=== PATIENT | female | born 1960 | race African-American/Black ===

== ENCOUNTER 2022-12-19 14:28 | Emergency (ER) | payer MEDICARE, SELFPAY ==
[2022-12-19 14:36] VITALS: BP 180/81; PULSE 101; RESP 16; TEMP 36.8; O2SAT 97; BMI 23.6
--- NOTE | 2022-12-19 14:45 | W.ED.NAVMDI ---
HPI - Nausea/Vomiting/Diarrhea General: Chief complaint: Nausea/Vomiting/Diarrhea Stated complaint: states dehydration Time Seen by Provider: 12/19/22 14:45 History of Present Illness: Ms. Street is a 62-year-old lady with history of hypertension, diabetes, history of what sounds like aortic dissection type a requiring surgical repair and medical management of extension into the abdomen presenting to the emergency department for generalized illness. She reports a few week history of nausea, vomiting, generalized malaise and intermittent abdominal pain. She notes approximately 10 episodes of nonbloody and nonbilious emesis. She symptoms are exacerbated by exertion and eating. No other specific changes in health, exacerbating, or alleviating factors identified. Flu and COVID testing negative at clinic. Onset (ago): week(s) Description of vomiting: watery Associated nausea: Yes Associated abdominal pain: Yes Location of pain: RLQ and LLQ Pain consistency: intermittent Severity: moderate Quality: aching Exacerbating factors: none Relieving factors: none Associated symtoms: Reports cough, fatigue, malaise and nausea Review of Systems General: Reports: 10 or more systems reviewed and unremarkable except in HPI and below Const: Reports: fatigue and malaise GI: Reports: nausea PFSH ED PFSH: Medical History (Updated 12/27/22 @ 00:01 by MIRZA Mosquera) Anxiety Depression History of aortic dissection Hypertension Type 2 diabetes mellitus Surgical History (Updated 12/19/22 @ 15:00 by Rinku Lee MD) H/O heart surgery History of hysterectomy History of total knee arthroplasty Physical Exam Const: COMMON NORMALS: alert GENERAL APPEARANCE: cooperative and well developed HENMT: COMMON NORMALS: normocephalic and atraumatic HEAD & SCALP: normocephalic and atraumatic Eye: COMMON NORMALS: conjunctivae normal CONJUNCTIVA: Yes conjunctivae normal SCLERA: sclerae normal Neck/C-Spine: COMMON NORMALS: supple GENERAL: Yes trachea midline Resp: COMMON NORMALS: clear to auscultation bilaterally EFFORT & INSPECTION: Yes able to speak in complete sentences AUSCULTATION: clear to auscultation bilaterally Cardio: COMMON NORMALS: regular rhythm RATE: tachycardic RHYTHM: regular rhythm GI: COMMON NORMALS: Soft to palpation PALPATION: Yes Soft to palpation and No Tenderness to palpation present (GI) Extremity: GENERAL: Yes normal exam except as noted and No edema Neuro: COMMON NORMALS: moves all extremities SENSORIUM/ORIENTATION: Yes alert and No Orientation impaired Psych: COMMON NORMALS: mental status grossly normal and Normal thought process present THOUGHT PROCESS: Normal thought process present Course Vital Signs: Vital signs: Vital Signs Temperature 98.2 F 12/19/22 14:36 Pulse Rate 94 12/19/22 18:06 Respiratory Rate 16 12/19/22 18:06 Blood Pressure 170/78 12/19/22 18:06 Pulse Oximetry 94 12/19/22 18:06 Oxygen Delivery Me thod 12/19/22 14:36 MDM - Nausea/Vomiting/Diarrhea Medical Decision Making 62-year-old lady presenting with concern over nausea, vomiting, dehydration. Exam as above. Patient mildly tachycardic and clinically appears dry. She is nontoxic. EKG notable for sinus rhythm with LVH and nonspecific ST segment abnormalities. No STEMI. Hematologic panel with no leukocytosis, normal hemoglobin and platelet count. Metabolic panel with hypokalemia and evidence of dehydration. Negative range 2-hour delta troponin. Rapid viral testing negative reviewed. Chest x-ray with cardiomegaly, no lobar consolidation or pneumothorax. Given benign abdominal exam I do not believe that the patient requires abdominal imaging. Patient treated with IV fluids, analgesia, potassium replenishment, antiemetic. She is able to tolerate p.o. intake. Patient left prior to receiving discharge instructions. Most likely etiology of symptoms is dehydration secondary to viral syndrome. The patient was oriented to person, place, and time, has the capacity to make decisions regarding the medical care offered. The patient speaks coherently and exhibits no evidence of having an altered level of consciousness or alcohol or drug intoxication to a point that would impair judgment. Medical Records I reviewed the patient's medical records. Lab Data I reviewed the patient's lab results. 12/19/22 15:22 12/19/22 15:22 Radiology Impressions Chest X-Ray 12/19/22 14:54 IMPRESSION: Cardiomegaly. Otherwise, no acute findings. Laboratory Results WBC 7.9 10^3/uL (4.0-10.0) 12/19/22 15:22 RBC 5.09 10^6/uL (4.1-5.3) 12/19/22 15:22 Hgb 13.1 g/dL (11.5-15.3) 12/19/22 15: Hct 38.6 % (37.0-47.0) 12/19/22 15: MCV 75.8 fl (81-99) L 12/19/22 15: MCH 25.7 pg (28.0-34.0) L 12/19/22 15: MCHC 33.9 g/dL (30.0-36.0) 12/19/22 15: RDW 15.7 % (12.1-15.1) H 12/19/22 15: Plt Count 317 10^3/cmm (130-400) 12/19/22 15: MPV 11.7 fL (7.4-10.4) H 12/19/22 15: Neut % (Auto) 62.9 % 12/19/22 15: Lymph % (Auto) 30.0 % 12/19/22: [place] % (Auto) 6.7 % 12/19/22: Eos % (Auto) 0.0 % 12/19/22 15: Baso % (Auto) 0.3 % 12/19/22: Neut # (Auto) 5.00 10^3/uL (1.8-7.7) 12/19/22 15: Lymph # (Auto) 2.4 10^3/uL (0.8-4.8) 12/19/22: [place] # (Auto) 0.5 10^3/uL (0.2-0.9) 12/19/22: Eos # (Auto) 0.0 10^3/uL (0.0-0.8) 12/19/22 15: Baso # (Auto) 0.0 10^3/uL (0.0-0.1) 12/19/22: Nucleated RBC % (auto) 0 % 12/19/22: Nucleated RBCs # 0.0 /100WBC 12/19/22 15: Sodium 138 mmol/L (136-145) 12/19/22 15: Potassium 2.9 mmol/L (3.5-5.1) L 12/19/22 15: Chloride 97 mmol/L (98-107) L 12/19/22 15:22 Carbon Dioxide 26 mmol/L (22-29) 12/19/22 15:22 Anion Gap 17.9 (5-19) 12/19/22 15:22 BUN 32 mg/dL (8-23) H 12/19/22 15:22 Creatinine 1.0 mg/dL (0.5-0.9) H 12/19/22 15:22 GFR Calculation 68.4 mL/min (90-130) L 12/19/22 15:22 Glucose 116 mg/dL (65-115) H 12/19/22 15:22 Calculated Osmolality 294 mOsm/kg (285-295) 12/19/22 15:22 Calcium 9.6 mg/dL (8.5-10.5) 12/19/22 15:22 Total Bilirubin 0.8 mg/dL (0.15-1.2) 12/19/22 15:22 AST 18 U/L (0-32) 12/19/22 15:22 ALT 12 U/L (0-33) 12/19/22 15:22 Alkaline Phosphatase 92 U/L (35-105) 12/19/22 15:22 Troponin T Baseline 29 ng/L (0-10) H 12/19/22 15:22 Troponin T 120 Minute 25.40 ng/L (0-10) H 12/19/22 17:19 Delta Troponin T -3.60 ABS# (0-10) L 12/19/22 17:19 C-Reactive Protein 4.7 mg/L (0.0-4.9) 12/19/22 15:22 Total Protein 8.1 g/dL (6.6-8.7) 12/19/22 15:22 Albumin 4.4 g/dL (3.5-5.2) 12/19/22 15:22 Globulin 3.7 g/dL (1.3-4.6) 12/19/22 15:22 Procalcitonin 0.12 ng/mL (0-0.5) 12/19/22 15:22 TSH 1.00 uIU/mL (0.27-4.20) 12/19/22 15:22 Discharge Plan Discharge Patient Disposition: Left Against Medical Advice Clinical Impression: Nausea & vomiting, Headache, Shortness of breath, Acute viral syndrome Condition: Stable Prescriptions: New ondansetron 4 mg tablet,disintegrating 4 mg PO Q8H PRN (Reason: nausea and vomiting) Qty: 15 0RF albuterol sulfate 90 mcg/actuation HFA aerosol inhaler 2 inh inhalation Q4H PRN (Reason: shortness of breath or wheezing) Qty: 8.5 0RF No Action diazepam 5 mg tablet 5 mg PO DAILY PRN buspirone 10 mg tablet 10 mg PO DAILY metformin 500 mg tablet 500 mg PO BID nifedipine 60 mg tablet extended release 60 mg PO DAILY atorvastatin 40 mg tablet 40 mg PO DAILY Eliquis 5 mg tablet 5 mg PO BID montelukast [Singulair] 10 mg tablet 10 mg PO DAILY hydralazine 25 mg tablet 25 mg PO TID olmesartan 40 mg tablet 40 mg PO DAILY sertraline 100 mg tablet 150 mg PO DAILY Discharge Orders: Discharge ED (Routine); Ordered 12/19/22 Ordered By: Rinku Lee Discharge Diet: Usual diet Discharge Activity: Increase activity as tolerated Patient Instructions: Dehydration (ED), Acute Nausea and Vomiting (ED), Viral Syndrome (ED), Shortness of Breath (ED) Activity Restrictions/Additional Instructions: Thank you for visiting the emergency department. You were seen and evaluated for generalized illness. The exact cause your symptoms is unclear however is likely related to viral syndrome with mild dehydration. I will prescribe steroids and antinausea medications as well as an inhaler. Please also use your albuterol metered-dose inhaler 2 puffs every 4 hours for 24 hours followed by 2 puffs every 6 hours for 24 hours followed by 2 puffs every 8 hours for 24 hours and then return to the normal schedule. We are still waiting for the repeat cardiac marker for to come back to evaluate for heart attack. I will call you had the listed phone number in the chart to return if that number comes back elevated. Please follow-up with your primary care provider. Return to the emergency department for anything that you are concerned about and feel needs emergency department evaluation. Stand Alone Forms: Against Medical Advice Coding Level of Care Code ED Bridge Construction Inspector for Dominguez Aguilar
--- NOTE | 2022-12-19 14:54 | XRR_ITS ---
PROCEDURE INFORMATION: Exam: XR Chest Exam date and time: 12/19/2022 2:59 PM Age: 62 years old Clinical indication: Shortness of breath; Prior surgery; Surgery type: Stents; Additional info: SOB TECHNIQUE: Imaging protocol: Radiologic exam of the chest. Views: 1 view. COMPARISON: No relevant prior studies available. FINDINGS: Lungs: Unremarkable. No consolidation. Pleural spaces: Unremarkable. No pleural effusion. No pneumothorax. Heart/Mediastinum: Cardiomegaly. Bones/joints: Sternotomy wires noted. Visualized osseous structures are intact. XR/XR chest 1V portable [id number] IMPRESSION: Cardiomegaly. Otherwise, no acute findings.
[2022-12-19] MEDS: ondansetron 2 mg/ML SDV 2 mL 4 MG IVP (15:17)
[2022-12-19] MEDS: sodium chloride 0.9% 1,000 ML 999 ML IV (15:17)
--- NOTE | 2022-12-19 15:23 | ECG_ITS ---
[facility] Test Date: 2022-12-19 Pat Name: Katharina Street Department: Room: Gender: Female Ammonia Refrigeration Technician: : 1960 Requested By: Rinku Lee Order Number: [id number] Zeferino MD: Manoj Davila M.D. Measurements Intervals [place] Rate: 86 P: -40 SC: 137 QRS: -16 QRSD: 110 T: 148 QT: 399 QTc: 480 Interpretive Statements SINUS RHYTHM LEFT VENTRICULAR HYPERTROPHY AND ST-T CHANGE [VOLTAGE CRITERIA PLUS ST/T ABNORMALITY] No previous ECG available for comparison Electronically Signed On 12-19-2022 21:23:32 YEAST CAKE CUTTER by Manoj Davila M.D. [id number]
[2022-12-19 15:29] LABS: Basophils % 0.3 %; Hematocrit 38.6 % (37.0-47.0); Hemoglobin 13.1 g/dL (11.5-15.3); Lymphocytes # 2.4 10^3/uL (0.8-4.8); Mean Corpuscular HGB Conc 33.9 g/dL (30.0-36.0); Mean Corpuscular Hemoglobin 25.7 pg (28.0-34.0); Mean Corpuscular Volume 75.8 fl (81-99); Mean Platelet Volume 11.7 fL (7.4-10.4); Monocytes # 0.5 10^3/uL (0.2-0.9); Monocytes % 6.7 %; Neutrophils % 62.9 %; Nucleated Red Blood Cells % 0 %; Platelet Count 317 10^3/cmm (130-400); Red Blood Count 5.09 10^6/uL (4.1-5.3); Red Cell Distribution Width 15.7 % (12.1-15.1); White Blood Count 7.9 10^3/uL (4.0-10.0)
[2022-12-19 15:57] LABS: Troponin(5th) Baseline 29 ng/L (0-10)
[2022-12-19 16:05] LABS: Procalcitonin 0.12 ng/mL (0-0.5)
[2022-12-19 16:16] LABS: Alanine Aminotransferase 12 U/L (0-33); Albumin Level 4.4 g/dL (3.5-5.2); Alkaline Phosphatase 92 U/L (35-105); Anion Gap 17.9 (5-19); Aspartate Amino Transferase 18 U/L (0-32); Blood Urea Nitrogen 32 mg/dL (8-23); C Reactive Protein 4.7 mg/L (0.0-4.9); Calcium 9.6 mg/dL (8.5-10.5); Carbon Dioxide 26 mmol/L (22-29); Chloride 97 mmol/L (98-107); Globulin 3.7 g/dL (1.3-4.6); Glomerular Filtration Rate 68.4 mL/min (90-130); Glucose 116 mg/dL (65-115); Osmolality Calculated 294 mOsm/kg (285-295); Sodium 138 mmol/L (136-145); Total Bilirubin 0.8 mg/dL (0.15-1.2); Total Protein 8.1 g/dL (6.6-8.7)
[2022-12-19] MEDS: ketorolac 30 mg/mL INJ 15 MG IVP (16:19)
[2022-12-19] MEDS: acetaminophen 500 mg Tablet 1000 MG PO (16:19)
[2022-12-19 16:27] LABS: Potassium 2.9 mmol/L (3.5-5.1)
--- NOTE | 2022-12-19 16:48 | PC.NURSE ---
informed dr. beckman of potassium of 2.9 he verbalized understanding no further orders.
--- NOTE | 2022-12-19 17:06 | ECG_ITS ---
[facility] Test Date: 2022-12-19 Pat Name: Katharina Street Department: Room: Gender: Female Prepress Specialist: : [id number] Requested By: Rinku Lee Order Number: [id number] Zeferino MD: Manoj Davila M.D. Measurements Intervals [place] Rate: 97 P: 71 AR: 165 QRS: -15 QRSD: 99 T: 101 QT: 390 QTc: 497 Interpretive Statements SINUS RHYTHM WITH OCCASIONAL SUPRAVENTRICULAR PREMATURE COMPLEXES LEFT ATRIAL ENLARGEMENT [-0.15mV P-WAVE IN V1/V2] LEFT VENTRICULAR HYPERTROPHY AND ST-T CHANGE [VOLTAGE CRITERIA PLUS ST/T ABNORMALITY] Compared to ECG 12/19/2022 15:23:59 Atrial abnormality now present ST (T wave) deviation still present Electronically Signed On 12-19-2022 21:24:07 DRY ROOM ATTENDANT by Manoj Davila M.D. [id number]
[2022-12-19] MEDS: potassium chloride ER 20 mEq Tablet 60 MEQ PO (17:11)
[2022-12-19] MEDS: diphenhydrAMINE 50 mg/mL SDV 1mL 12.5 MG IVP (17:26)
[2022-12-19] MEDS: metoclopramide 5 mg/mL SDV 2 mL 10 MG IVP (17:27)
--- NOTE | 2022-12-19 17:38 | PC.NURSE ---
PT REQUESTING TO LEAVE INFORMED DR. VELAZQUEZ VERBALIZED UNDERSTANDING NO FURTHER ORDERS.
[2022-12-19 18:06] VITALS: BP 170/78; PULSE 94; RESP 16; O2SAT 94
--- NOTE | 2022-12-24 15:00 | DCPLANNER ---
protection manager called patient due to no primary care physician. Patient stated that she does not live in the area, and that she has a primary care in the area that she lives.
== END 2022-12-19 18:08 | disposition left against medical advice (07) ==
PROVIDERS: Emergency Provider Emergency Medicine
DX: R11.2 Nausea with vomiting, unspecified (principal); R51.9 Headache, unspecified; R06.02 Shortness of breath; B34.9 Viral infection, unspecified
CPT/HCPCS: 36415; 71045; 80053; 84145; 84443; 84484; 85025; 86140; 87400; 87426; 93005; 96361; 96374; 96375; 99285; J1200; J1885; J2405; J2765; J2930; J7030